=== PATIENT | male | born 1940 | race Caucasian/White ===

== ENCOUNTER → 2017-03-30 | Outpatient (CLI) | payer OTHER, BC ==
[~2017-03-30] MED LIST: ALLOPURINOL 10100 M1 PO; ALLOPURINOL 30300 M2 PO; ATENOLOL 100MG100 MG PO; DIOVAN HCT 1601 EACH PO; DIOVAN HCT 3201 EACH PO; DOXYCYCLINE 10100 MG PO; PRADAXA150 MG PO; PRADAXA75 MG PO
== END ==
LOC: RAD 10:49
DX: R77.8 Other specified abnormalities of plasma proteins (principal); R70.0 Elevated erythrocyte sedimentation rate